=== PATIENT | female | born 1950 | race Caucasian/White ===

== ENCOUNTER 2019-08-01 12:13 | Outpatient (CLI) | payer MEDICARE ==
--- NOTE | 2019-08-01 13:51 | MRI ---
MRI RIGHT SHOULDER WITHOUT CONTRAST: Date: 08/01/19 INDICATION: Right shoulder pain on and off for 20 years; in the past 1.5 years, pain has worsened. COMPARISON: None. FINDINGS: There is a full thickness tear involving the supraspinatus at the footprint measuring approximately 2 .2 x 2.0 cm in greatest AP and mediolateral dimensions, respectively. There is partial thickness jim cular surface extension into the anterior to mid infraspinatus and involves 50% of the tendon thickne ss. No muscular atrophy is evident. There is severe AC joint osteoarthrosis with joint hypertrophy ca using mild encroachment on the subjacent supraspinatus. Biceps tendon is located. There is some mild tendinosis of the interarticular biceps tendon. Motion artifact slightly limits image detail, particu larly of the glenoid labrum. No definite full thickness labral tear is evident. No paralabral cyst is identified. Glenohumeral articular surface appears relatively well maintained. IMPRESSION: 1. Full thickness tear of the supraspinatus with partial thickness articular surface extension into the anterior to mid infraspinatus. This partial thickness tear of the infraspinatus involves approxim ately 50% of the tendon thickness. 2. Severe AC joint osteoarthrosis with mild encroachment. 3. Mild biceps tendinosis. 4. Some limitation of exam due to motion artifact. POS: OFF
--- NOTE | 2019-08-01 14:25 | MMO ---
Bilateral MAMMO Bilat Screen [facility]. CLINICAL HISTORY: Patient is 68 years old and is seen for screening. The patient has no family history of breast cancer. The patient has no personal history of cancer. VIEWS: The views performed were: bilateral craniocaudal with tomosynthesis and bilateral mediolateral oblique with tomosynthesis. MAMMOGRAM FINDINGS: There are scattered fibroglandular densities. There are benign appearing calcifications seen in both breasts. There are no suspicious masses, suspicious calcifications, or new areas of architectural distortion. IMPRESSION: THERE IS NO MAMMOGRAPHIC EVIDENCE OF MALIGNANCY. A ROUTINE FOLLOW-UP MAMMOGRAM IN 1 YEAR IS RECOMMENDED. THE RESULTS OF THIS EXAM WERE SENT TO THE PATIENT. ACR BI-RADS Category 2 - Benign finding MAMMOGRAPHY NOTE: 1. A negative mammogram report should not delay a biopsy if a dominant of clinically suspicious mass is present. 2. Approximately 10% to 15% of breast cancers are not detected by mammography. 3. Adenosis and dense breasts may obscure an underlying neoplasm. Reported by: JOSE A PINEDA MD Electonically Signed: [id number]
== END 2019-08-01 12:14 | disposition home or self-care (01) ==
LOC: BICMRI 12:13
PROVIDERS: ATTEND Family Medicine
DX: Z12.31 Encounter for screening mammogram for malignant neoplasm of breast (principal); M25.511 Pain in right shoulder; M19.011 Primary osteoarthritis, right shoulder; M75.21 Bicipital tendinitis, right shoulder; M75.101 Unspecified rotator cuff tear or rupture of right shoulder, not specified as traumatic
CPT/HCPCS: 77063; 77067

== ENCOUNTER 2019-08-24 10:40 | Outpatient (CLI) | payer MEDICARE ==
[2019-08-24 15:21] LABS: #Eosinphils 0.2 thou/uL (0.0-0.7); #Lymphocytes 1.6 thou/uL (1.20-3.40); #Monocytes 0.3 thou/uL (0.11-0.59); #Neutrophils 3.5 thou/uL (1.40-6.50); %Basophils 0.5 % (0.0-1.0); %Eosinophils 3.3 % (0.0-10.0); %Lymphocytes 29.2 % (21.0-51.0); %Monocytes 5.5 % (0.0-10.0); %Neutrophils 61.5 % (42.0-75.0); Hemoglobin 13.7 g/dL (12.0-16.0); Mean Corpuscular HGB CONC 34.9 g/dL (32.0-36.0); Mean Corpuscular Hemoglobin 32.3 pg (27.0-31.0); Mean Corpuscular Volume 92.5 fL (78.0-98.0); Mean Platelet Volume 8.9 fL (7.4-10.4); Platelet Count 161 thou/uL (130-400); RBC Distribution Width 12.8 % (11.5-14.5); Red Blood Cell (RBC) Count 4.24 mill/uL (4.20-5.40); White Blood Cell (WBC) Count 5.6 thou/uL (4.8-10.8)
[2019-08-24 15:27] LABS: INR-International Normal Ratio 1.1; Prothrombin Time 13.8 SEC (12.0-14.7)
[2019-08-24 16:00] LABS: Bilirubin Negative (Negative); Blood, Urine Negative (Negative); Clarity Clear (Clear); Glucose, Urine (Dipstick) Normal (Negative); Leukocyte 75 Leu/uL (Negative); Nitrite 1+ (Negative); Protein, Urine (Dipstick) Negative (Neg-Trace); RBC/HPF 0-3 HPF (0-3); Squamous Epithelial 0-3 HPF (0-3); Urobilinogen Normal mg/dL (Less than 2)
[2019-08-24 16:24] LABS: Bacteria/HPF 3+ HPF (None Seen)
--- NOTE | 2019-08-25 20:15 | EKG ---
Test Reason : Blood Pressure : / mmHG Vent. Rate : 074 BPM Atrial Rate : 074 BPM P-R Int : 136 ms QRS Dur : 074 ms QT Int : 400 ms P-R-T Axes : 052 020 070 degrees QTc Int : 444 ms Sinus rhythm with Fusion complexes Low voltage QRS Cannot rule out Anterior infarct , age undetermined Abnormal ECG No previous ECGs available Confirmed by ABDIRASHID MENDES, DR. Walter ([id number]) on 08/25/2019 8:15:10 PM Referred By: LAVONNE Confirmed By:DR. Saba MENDENHALL MD
== END 2019-08-24 10:41 | disposition home or self-care (01) ==
LOC: LABBT 10:40
PROVIDERS: ATTEND Orthopaedic Surgery
DX: Z01.818 Encounter for other preprocedural examination (principal); M75.101 Unspecified rotator cuff tear or rupture of right shoulder, not specified as traumatic
CPT/HCPCS: 81001; 85025; 85610; 93005; 93010

== ENCOUNTER 2019-08-25 07:19 | Day surgery (SDC) | payer MEDICARE ==
[2019-08-24 11:28] VITALS: BMI 33.7
[2019-08-25] MEDS ORDERED: Midazolam HCl 2 mg/2 ml Vial ONE (08:19)
[2019-08-25] MEDS ORDERED: Fentanyl 100 MCG/2 ML VIAL ONE (08:19)
[2019-08-25] MEDS ORDERED: HYDROcodone/Acetaminophen 10/325 mg Tablet PO PRN ×2 (08:47)
[2019-08-25] MEDS ORDERED: Promethazine HCl 25 MG/ML VIAL IM PRN (08:47)
[2019-08-25] MEDS ORDERED: Ropivacaine 0.2% 550 ML 550 ML NERVE BLCK SCH (08:47)
[2019-08-25] MEDS ORDERED: Ondansetron PF 4 MG/2 ML Vial IVP PRN (08:47)
[2019-08-25] MEDS ORDERED: Zolpidem Tartrate 5 MG TAB PO PRN (08:47)
[2019-08-25] MEDS ORDERED: Ketorolac Tromethamine 30 MG/ML VIAL IVP PRN (08:47)
[2019-08-25] MEDS ORDERED: traMADol HCl 50 MG TAB PO PRN ×2 (08:47)
[2019-08-25] MEDS ORDERED: Bupivacaine/Epinephrine 0.25% 30 ML VIAL ONE (10:16)
--- NOTE | 2019-08-26 08:44 | OP ---
DATE OF PROCEDURE: 08/25/2019 PREOPERATIVE DIAGNOSIS: Right full-thickness rotator cuff tear, supraspinatus and leading edge infraspinatus with superior labral degenerative changes and biceps tendinopathy. POSTOPERATIVE DIAGNOSIS: Right full-thickness supraspinatus and leading edge infraspinatus tear with biceps partial tearing and superior labral injury. PROCEDURES PERFORMED: 1. Right rotator cuff repair, double-row transosseous equivalent. 2. Biceps tenotomy. CONSUMER BANKER: None. ANESTHESIA: The patient received a general endotracheal intubation with interscalene block. ESTIMATED BLOOD LOSS: 30 mL. TOURNIQUET TIME: None. ANTIBIOTICS: Ancef 2 g. IMPLANTS: Two 5.5 Corkscrews, two 4.5 SwiveLocks. COMPLICATIONS: None. HISTORY OF PRESENT ILLNESS: Ms. Cruz is a 68-year-old female presenting with over two years of right shoulder pain, pain with her activities, pain 10/10. She was found to have full-thickness tear of the supraspinatus and infraspinatus. Discussed biceps tendinosis and superior labral degenerative changes. I discussed with the patient the risks and benefits of a biceps tenotomy versus tenodesis with rotator cuff repair. I discussed the risks and benefits of surgery to include pain, scar, bleeding, infection, damage to vital structures, failure of repair, continued pain despite surgical intervention, loss of life or limb. The patient understood the risks and benefits and elected to proceed. DESCRIPTION OF PROCEDURE: Time-out was performed designating the patient's right upper extremity as the operative site, based on site, consents, and markings. After time-out, posterior working portal was placed intra-articularly. I looked through the rotator interval, debrided the portion of the superior labrum, found the rotator cuff tear. The biceps was partially torn in areas, tendinopathic, instability at the root; therefore I elected for a tenotomy. I cut the biceps. I saw the tear intra-articularly. I then moved completion of my intra-articular scope showing the subscapularis intact and moved subacromially. I found the tear after placing a lateral portal. I then used a primo and debrided the bone down and placed two anchors off the articular margin and passed 8 stiches, 8 horizontal mattress sutures. I used four limbs to lateral-row transosseous-equivalent anterior and posterior. There was a little laxity in the anterior row. I was overall pleased with my repair. I had placed two other portals to help with my visualization and passage. While I was attempting to start the tenodesis of the biceps, but it was stable within the groove, I think this was a large chunk that was taken. It was catching within my repair and I could not actually release it. Therefore, I left it in place as a tenotomy. The patient will follow up with me in 2 weeks. Begin elbow, wrist, and hand motion PROM. Job ID: [id number] [facility]
== END 2019-08-25 13:42 | disposition home or self-care (01) ==
LOC: SDC 07:19
PROVIDERS: ATTEND Orthopaedic Surgery
PROC: 0LQ10ZZ Repair Right Shoulder Tendon, Open Approach (ICD-10-PCS; principal; 2019-08-25)
PROC: 3E0T3BZ Introduction of Anesthetic Agent into Peripheral Nerves and Plexi, Percutaneous Approach (ICD-10-PCS; 2019-08-25)
DX: M75.111 Incomplete rotator cuff tear or rupture of right shoulder, not specified as traumatic (principal); S46.211A Strain of muscle, fascia and tendon of other parts of biceps, right arm, initial encounter; M19.011 Primary osteoarthritis, right shoulder; G89.18 Other acute postprocedural pain; X58.XXXA Exposure to other specified factors, initial encounter
CPT/HCPCS: 23412; 64416; A4306; C1713 ×2; J0690; J2250; J2795; J3010

== ENCOUNTER 2020-05-08 15:05 | Outpatient (CLI) | payer MEDICARE ==
--- NOTE | 2020-05-08 16:17 | MRI ---
EXAM: RIGHT SHOULDER MRI WITHOUT IV CONTRAST: 05/08/20 HISTORY: Acute pain right shoulder. Painful range of motion. Prior surgery in August 2019. COMPARISON: 08/01/19. FINDINGS: Exam is limited technically because of motion and artifact. Postop rotator cuff repair changes are no xander. There is no evidence for an intact intra-articular biceps tendon. There is evidence for internal fixation anchor which is within the subacromial bursa and adjacent to the torn retracted supraspinat us tendon. Minimal increased signal involving the undersurface of the infraspinatus tendon, evidence for partial thickness undersurface tear. Subscapularis tendinopathy. There is some irregularity of the superior and superior posterior labrum evidence for some tearing or fraying. No acute osteochondral defect. IMPRESSION: Movement of one of the internal fixation anchors from the greater tuberosity into the subacromial bur sa region adjacent to the retracted supraspinatus tendon. Marked AC joint arthrosis. Fluid within th e subacromial and subdeltoid bursal regions. Partial thickness undersurface tear of the infraspinatus tendon. No evidence for an intact biceps tendon within the intra-articular region. Very poorly defin ed somewhat blunted irregular appearing superior labrum and superior posterior labrum. POS: RRE
== END 2020-05-08 15:06 | disposition home or self-care (01) ==
LOC: BICMRI 15:05
PROVIDERS: ATTEND Orthopaedic Surgery
DX: M25.511 Pain in right shoulder (principal); M19.011 Primary osteoarthritis, right shoulder; M75.101 Unspecified rotator cuff tear or rupture of right shoulder, not specified as traumatic

== ENCOUNTER 2020-07-27 12:22 | Outpatient (CLI) | payer MEDICARE ==
--- NOTE | 2020-07-27 13:38 | MRI ---
MRI lumbar spine noncontrast: HISTORY: Lumbar spine MRI without contrast COMPARISON: L4 compression fracture. Recent fall. FINDINGS: T1 marrow signal hypointensity with loss of vertebral body height, mild retropulsion and vertebral regina dy edema involving the L4 level, compatible with a subacute compression fracture. Correlation made with a lumbar spine radiograph 06/19/2020 does suggest mild progression of loss of vertebral body heig ht. Subtle T1 hypointensity with T2 and STIR hyperintensity involving the inferior left endplate of L3 may represent endplate injury versus type I Modic change. Appropriate signal intensity of the visu alized paraspinal muscles. Exophytic cyst emanating from the lower pole of the left kidney Conus medullaris terminates at the inferior aspect of L1 T12-L1:No posterior disc abnormality. No significant central canal stenosis. Patent bilateral neural foramina L1-L2:Adequate disc hydration. No posterior disc abnormality. No significant central canal stenosis. Patent bilateral neural foramina L2-L3:Adequate disc hydration. Broad-based disc bulge, ligament flavum thickening and facet hypertrop hy result in mild central canal stenosis. Patent right and left neural foramina L3-L4:Adequate disc hydration. Broad-based disc bulge, ligament flavum thickening and facet hypertrop hy result in mild to moderate central canal stenosis. Mild right and [id number] left neural foraminal narrowing. L4-L5:Adequate disc hydration. No significant loss of disc space height. No significant posterior dis c abnormality. No significant central canal stenosis. Mild bilateral foraminal narrowing due to disc material and facet hypertrophy. L5-S1:Disc desiccation with moderate loss of disc space height. Broad-based disc bulge abuts the vent ral epidural space and encroaches upon both subarticular zones. There is contact upon both traversing S1 nerve roots without significant mass effect or obscuration. Moderate bilateral neural f oraminal narrowing. IMPRESSION: Redemonstration of a subacute compression fracture at L4. There is mild progression of loss of verteb ral body height when compared to the previous exam. There appears to be edema involving both pedicles, left greater than right. Additional endplate changes along the inferior endplate of L4 may represent posttraumatic change versus type I Modic change. Transcribed Date/Time: 07/27/2020 2:10 PM
== END 2020-07-27 12:23 | disposition home or self-care (01) ==
LOC: BICMRI 12:22
PROVIDERS: ATTEND Family Medicine
DX: S32.040A Wedge compression fracture of fourth lumbar vertebra, initial encounter for closed fracture (principal); G89.4 Chronic pain syndrome
CPT/HCPCS: 72148

== ENCOUNTER 2020-07-28 15:58 | Inpatient (IN) | payer MEDICARE, OTHER ==
--- NOTE | 2020-07-28 16:41 | RAD ---
PORTABLE CHEST: 07/28/20 HISTORY: Bennie pain. Heart size and mediastinum are within normal limits. The lungs are clear of any infiltrates. No signi ficant bony findings. IMPRESSION: No active intrathoracic disease. POS: OFF
[2020-07-28 16:45] LABS: #Basophils 0.1 thou/uL (0.0-0.2); #Eosinphils 0.1 thou/uL (0.0-0.7); #Lymphocytes 1.3 thou/uL (1.20-3.40); #Monocytes 0.5 thou/uL (0.11-0.59); #Neutrophils 5.8 thou/uL (1.40-6.50); %Basophils 0.6 % (0.0-1.0); %Eosinophils 1.8 % (0.0-10.0); %Lymphocytes 16.1 % (21.0-51.0); %Monocytes 6.9 % (0.0-10.0); %Neutrophils 74.5 % (42.0-75.0); Hemoglobin 14.8 g/dL (12.0-16.0); Mean Corpuscular HGB CONC 33.4 g/dL (32.0-36.0); Mean Corpuscular Hemoglobin 31.2 pg (27.0-31.0); Mean Corpuscular Volume 93.5 fL (78.0-98.0); Mean Platelet Volume 9.8 fL (7.4-10.4); Platelet Count 237 thou/uL (130-400); RBC Distribution Width 13.1 % (11.5-14.5); Red Blood Cell (RBC) Count 4.73 mill/uL (4.20-5.40); White Blood Cell (WBC) Count 7.8 thou/uL (4.8-10.8)
[2020-07-28 17:07] LABS: ALT (SGPT) 169 U/L (8-55); AST (SGOT) 96 U/L (5-34); Albumin 3.9 g/dL (3.4-4.8); Alkaline Phosphatase 81 U/L (40-110); Anion Gap 15 mmol/L (10-20); BUN (Urea Nitrogen) 24 mg/dL (9.8-20.1); Bilirubin, Total 0.8 mg/dL (0.2-1.2); CK (CPK) 15 U/L (29-168); Calc. Creatinine Clearance 0 mL/min (70-130); Calcium 8.9 mg/dL (7.8-10.44); Carbon Dioxide 25 mmol/L (23-31); Chloride 101 mmol/L (98-107); Estimated GFR-MDRD 78; Globulin 2.8 g/dL (2.4-3.5); Glucose 135 mg/dL (80-115); Protein, Total 6.7 g/dL (6.0-8.3); Sodium 137 mmol/L (136-145)
--- NOTE | 2020-07-28 18:57 | ULT ---
RIGHT UPPER QUADRANT ULTRASOUND: 07/28/20 HISTORY: Right upper quadrant pain. FINDINGS: The liver demonstrates increased echogenicity consistent with fatty infiltration. No focal mass or in trahepatic ductal dilatation is seen. The right kidney and gallbladder are normal. The tail of the pa ncreas is not visualized. The remainder of the pancreas appears normal. The common duct measures 4 mm in diameter. No free fluid is seen in Galicia's pouch. IMPRESSION: 1. Fatty liver. 2. No evidence of cholelithiasis. POS: MZA
[2020-07-28] MEDS ORDERED: methylPREDNISolone Sod Succ/PF 125 MG/2 ML VIAL ONE (20:14)
[2020-07-28] MEDS ORDERED: Aspirin 325 MG TAB ONE (20:14)
--- NOTE | 2020-07-28 20:15 | PDOC.HHP ---
Hospitalist HPI - History of Present Illness Feels like elephant sitting on chest History of Present Illness: PCP: Dr. Coreas The patient is a 69-year-old female with past medical history significant for hypertension. She presents to the ER today for what feels like an elephant is sitting on her chest. She states that when she swallows any food or drink she feels like the swallow was stopping in her chest and causing the pain. The patient does state that the only time the pain occurs is after eating or drinking anything, nothing else seems to be exacerbating the pain. Patient also claims to have shooting abdominal pain that reaches into her chest and is what actually starts the chest pain. She states that the pain will get tighter and tighter and feel like "labor pains" and then they will begin to lessen and that is also when the chest pain also decreases. She has found no relieving factors at home for the abdominal or chest pain. She was 3 days without a bowel movement and then today in the ER she had loose stools. When she wiped she noticed that there was a significant amount of blood on the toilet paper that was a darker red in color. She states she did not note how much blood was in the toilet because she was focused on the toilet paper. She states that she has not had this in the past. Patient has hives and states she is swollen twice her size. She states that she has been having difficulty breathing and hives since Thursday which led to the urgent care visit. At urgent care she tested negative for COVID and for the flu. She was started on a Z-Arsen and oral steroids and discharged home. States that she has taken Z-Arsen in the past and has had no difficulties with it. She was using topical Benadryl at home and found no relief with itching. She states that she has had hives like this in the past when she was under significant amount of stress and they resolved on their own within 24 hours. Patient does state that her stress level is higher at this time due to her 's health. ED Course: Today in the ER the patient had lab work, chest x-ray, abdominal ultrasound, and an EKG. She was administered 324 mg of aspirin and 125 mg of methylprednisone IV. Hospitalist ROS - Review of Systems Constitutional: denies: fever, chills, sweats, weakness, malaise, other Eyes: denies: pain, vision change, conjunctivae inflammation, eyelid inflammation, redness, other ENT: denies: ear pain, ear discharge, nose pain, nose discharge, nose congestion , mouth pain, mouth swelling, throat pain, throat swelling, other Respiratory: denies: cough, dry, shortness of breath, hemoptysis, SOB with excertion, pleuritic pain, sputum, wheezing, other Cardiovascular: reports: chest pain (Pressure when eating) Gastrointestinal: reports: melena Genitourinary: denies: dysuria, frequency, incontinence, hematuria, retention, other Musculoskeletal: denies: neck pain, shoulder pain, arm pain, back pain, hand pain, leg pain, foot pain, other Skin: reports: rash (Hives over her entire body) Neurological: denies: weakness, numbness, incoordination, change in speech, confusion, seizures, other All other systems reviewed; all pertinent +/- noted in HPI/Subj - Medication Medications: Allergies: Codeine Current medications: methylPREDNISolone Sat Jul 28, 2020 16:33 NORA Maria Melanie tablet : Strength - 4 mg : ORAL Patient Dose: 4 mg Oral. tiZANidine Sat Jul 28, 2020 16:34 NORA Maria Melanie capsule : Strength - 4 mg : ORAL Patient Dose: 4 mg Oral As Needed. citalopram ThuJul 28, 2020 16:35 NORA Maria Melanie tablet : Strength - 40 mg : ORAL Patient Dose: 40 mg Oral once a day. lisinopril ThuJul 28, 2020 16:35 NORA Maria Melanie tablet : Strength - 10 mg : ORAL Patient Dose: 10 mg Oral once a day. naproxen ThuJul 28, 2020 16:36 NORA Maria Melanie tablet : Strength - 500 mg : ORAL Patient Dose: 500 mg Oral 2 times a day. Xanax ThuJul 28, 2020 16:36 NORA Maria Melanie tablet : Strength - 1 mg : ORAL Patient Dose: Unknown. Hospitalist History - Past Medical History Source: patient Cardiac: reports: HTN Psych: reports: Anxiety, Depression - Past Surgical History Past Surgical History: reports: Other (Rotator cuff) - Family History Family History: reports: no pertinent history - Social History Smoking Status: Never smoker Alcohol: reports: None Drugs: reports: none Living Situation: With Family Occupation: [employer] - Exam General Appearance: NAD, awake alert General - other findings: VS: BP 130/67, P 83, respiratory 25, temp 98.3, 95% room air Eye: PERRL, anicteric sclera ENT: normocephalic atraumatic, moist mucosa Neck: supple, no lymphadenopathy Heart: RRR, no murmur, no gallops, no rubs, normal peripheral pulses Respiratory: CTAB, no wheezes, no rales, no ronchi Gastrointestinal: soft, non-tender, non-distended, normal bowel sounds, no guarding, no rigidity Extremities: no cyanosis, no clubbing, 1+ LE edema (To left extremity) Skin - other findings: Hives over her entire body Psychiatric: normal affect, normal behavior Hospitalist Results - Labs Result Diagrams: 07/28/20 16:33 07/28/20 16:33 Lab results: WBC 7.8 thou/uL (4.8-10.8) 07/28/20 16:33 Hgb 14.8 g/dL (12.0-16.0) 07/28/20 16:33 Hct 44.3 % (36.0-47.0) 07/28/20 16:33 MCV 93.5 fL (78.0-98.0) 07/28/20 16:33 Plt Count 237 thou/uL (130-400) 07/28/20 16:33 Neutrophils % 74.5 % (42.0-75.0) 07/28/20 16:33 Sodium 137 mmol/L (136-145) 07/28/20 16:33 Potassium 4.0 mmol/L (3.5-5.1) 07/28/20 16:33 Chloride 101 mmol/L (98-107) 07/28/20 16:33 Carbon Dioxide 25 mmol/L (23-31) 07/28/20 16:33 BUN 24 mg/dL (9.8-20.1) H 07/28/20 16:33 Creatinine 0.74 mg/dL (0.6-1.1) 07/28/20 16:33 Glucose 135 mg/dL (80-115) H 07/28/20 16:33 Calcium 8.9 mg/dL (7.8-10.44) 07/28/20 16:33 Total Bilirubin 0.8 mg/dL (0.2-1.2) 07/28/20 16:33 AST 96 U/L (5-34) H 07/28/20 16:33 ALT 169 U/L (8-55) H 07/28/20 16:33 Alkaline Phosphatase 81 U/L (40-110) 07/28/20 16:33 Creatine Kinase 15 U/L (29-168) L 07/28/20 16:33 Troponin I 0.018 ng/mL (< 0.028) 07/28/20 16:33 Serum Total Protein 6.7 g/dL (6.0-8.3) 07/28/20 16:33 Albumin 3.9 g/dL (3.4-4.8) 07/28/20 16:33 Laboratory Tests 07/28/20 16:33 Troponin I 0.018 - EKG Interpretation EKG: Sinus rhythm 86 bpm no ectopic beats - Radiology Interpretation Chest x-ray Status: report reviewed by me Additional Comment: Heart size and mediastinum are within normal limits. The lungs are clear of any infiltrates. No significant bony findings. IMPRESSION: No active intrathoracic disease. US - abdomen Status: report reviewed by me Additional Comment: FINDINGS: The liver demonstrates increased echogenicity consistent with fatty infiltration. No focal mass or in trahepatic ductal dilatation is seen. The right kidney and gallbladder are normal. The tail of the pa ncreas is not visualized. The remainder of the pancreas appears normal. The common duct measures 4 mm in diameter. No free fluid is seen in Morrisons pouch. IMPRESSION: 1. Fatty liver. 2. No evidence of cholelithiasis. Hospitalist H&P A/P - Problem (1) Chest pain Code(s): R07.9 - CHEST PAIN, UNSPECIFIED Status: Acute (2) Abdominal pain Code(s): R10.9 - UNSPECIFIED ABDOMINAL PAIN Status: Acute (3) Hives Code(s): L50.9 - URTICARIA, UNSPECIFIED Status: Acute (4) Hypertension Code(s): I10 - ESSENTIAL (PRIMARY) HYPERTENSION Status: Chronic (5) Anxiety Code(s): F41.9 - ANXIETY DISORDER, UNSPECIFIED Status: Chronic (6) Depression Code(s): F32.9 - MAJOR DEPRESSIVE DISORDER, SINGLE EPISODE, UNSPECIFIED Status : Chronic - Plan Plan: Chest pain Monitor on telemetry Serial cardiac enzymes, initial troponin negative A.m. labs Stat magnesium Abdominal pain with possible GI bleed Monitor H&H every 6 hours GI consult in a.m. PPI IV twice daily FOBT BUN slightly elevated Hives IV Benadryl as needed Patient states they are getting better from earlier this week, still in a lot of discomfort Hypertension Restart home medications Monitor vital signs every 4 hour Stable at this time Anxiety and depression Restart home medications GI prophylaxis with Protonix, VTE prophylaxis with SCDshold anticoagulants due to melena CODE STATUS: Full Surrogate decision-maker: , John Cruz Patient discussed with Dr. Rambo Lynch
[2020-07-28] MEDS ORDERED: Ondansetron ODT 4 MG TAB SL PRN (22:06)
[2020-07-28] MEDS ORDERED: Ondansetron PF 4 MG/2 ML Vial IVP PRN (22:06)
[2020-07-28] MEDS ORDERED: Acetaminophen 325 MG TAB PO PRN (22:06)
[2020-07-28] MEDS ORDERED: Sodium Chloride 0.9% (PF) 10 ML VIAL FS PRN (22:15)
[2020-07-28 22:34] VITALS: BMI 32.6
[2020-07-28 23:12] LABS: Hemoglobin 14.9 g/dL (12.0-16.0)
[2020-07-28] MEDS: diphenhydrAMINE 50 MG/ML VIAL IVP PRN (23:17)
[2020-07-28 23:34] LABS: Troponin I 0.017 ng/mL (< 0.028)
[2020-07-29 02:17] LABS: #Eosinphils 0.1 thou/uL (0.0-0.7); #Lymphocytes 0.7 thou/uL (1.20-3.40); #Neutrophils 5.3 thou/uL (1.40-6.50); %Basophils 0.2 % (0.0-1.0); %Eosinophils 0.8 % (0.0-10.0); %Lymphocytes 11.7 % (21.0-51.0); %Monocytes 0.5 % (0.0-10.0); %Neutrophils 86.7 % (42.0-75.0); Hemoglobin 13.3 g/dL (12.0-16.0); Mean Corpuscular HGB CONC 33.9 g/dL (32.0-36.0); Mean Corpuscular Hemoglobin 31.7 pg (27.0-31.0); Mean Corpuscular Volume 93.7 fL (78.0-98.0); Mean Platelet Volume 9.5 fL (7.4-10.4); Platelet Count 202 thou/uL (130-400); RBC Distribution Width 12.9 % (11.5-14.5); White Blood Cell (WBC) Count 6.1 thou/uL (4.8-10.8)
[2020-07-29 02:39] LABS: Anion Gap 13 mmol/L (10-20); BUN (Urea Nitrogen) 26 mg/dL (9.8-20.1); Calc. Creatinine Clearance 102 mL/min (70-130); Calcium 8.2 mg/dL (7.8-10.44); Carbon Dioxide 23 mmol/L (23-31); Chloride 102 mmol/L (98-107); Cholesterol 92 mg/dl (< 200 Desired); Estimated GFR-MDRD 78; Glucose 276 mg/dL (80-115); HDL Cholesterol 23 mg/dL (>60 Neg Risk); LDL Cholesterol, Calculated 45 mg/dL; Potassium 4.4 mmol/L (3.5-5.1); Sodium 134 mmol/L (136-145); Triglycerides 119 mg/dL (Less than 150)
[2020-07-29 02:41] LABS: Troponin I Less than 0.010 ng/mL (< 0.028)
[2020-07-29] MEDS: diphenhydrAMINE 50 MG/ML VIAL IVP PRN (06:29)
[2020-07-29] MEDS ORDERED: diphenhydrAMINE 25 MG CAP PO PRN (08:29)
[2020-07-29] MEDS ORDERED: Dicyclomine 10 MG CAP PO PRN (08:29)
[2020-07-29] MEDS ORDERED: tiZANidine HCl 4 MG TAB PO PRN (08:30)
[2020-07-29] MEDS ORDERED: Electrolyte Replacement Protoc 1 EACH EACH FS SCH (08:34)
[2020-07-29] MEDS ORDERED: Lisinopril 10 MG TAB PO SCH (09:00)
[2020-07-29] MEDS ORDERED: Pantoprazole 40 MG VIAL IVP SCH (09:00)
[2020-07-29] MEDS ORDERED: Magnesium 2 GM/50 ML 2 GM in Premix Bag 1 BAG IVPB SCH (09:00)
[2020-07-29] MEDS ORDERED: Nitroglycerin 0.4 MG TAB (25 Tab Bottle) PO PRN (09:07)
[2020-07-29] MEDS ORDERED: Diabetic Tussin 200 MG/10 ML UDCUP PO PRN (09:08)
[2020-07-29] MEDS ORDERED: Sodium Chloride 0.65% Nasal 44 ML BOT EA NARE PRN (09:08)
[2020-07-29] MEDS ORDERED: Famotidine 20 MG TAB PO SCH (09:15)
[2020-07-29] MEDS: Vancomycin HCl 25 MG/ML Oral PO SCH ×3 (09:47→20:27)
[2020-07-29] MEDS: Fluticasone Propionate Nasal Spray 16 gm Bottle NASAL SCH (09:47)
[2020-07-29] MEDS: Citalopram 20 MG TAB PO SCH (09:48)
[2020-07-29] MEDS: Saccharomyces boulardii 250 MG CAP PO SCH (09:48)
[2020-07-29] MEDS: Loratadine 10 MG TAB PO SCH (09:48)
[2020-07-29 10:56] LABS: Iron 89 ug/dL (50-170); Iron Binding Capacity, Total 270 mcg/dL (265-497)
[2020-07-29 11:46] LABS: SARS-CoV-2 MS2 Positive; SARS-CoV-2 N Gene Negative; SARS-CoV-2 S Gene Negative; SARS-CoV-2 by NAA Not Detected (NotDetected); SARS-CoV-2 orf1ab Negative
--- NOTE | 2020-07-29 13:47 | CON ---
DATE OF CONSULTATION: 07/29/2020 REASON FOR CONSULTATION: Dysphagia, abdominal pain, hematochezia. CONSULTING PROVIDER: Ms. Melony Allen. HISTORY OF PRESENT ILLNESS: The patient is a 69-year-old female with past medical history of hypertension, anxiety, and depression, presenting with complaints of abdominal pain and hematochezia. She states that she was in her usual state of health until approximately 1 week ago when she began having increased left lower quadrant abdominal pain that she characterized as a cramping/contraction type pain, would radiate to the right lower quadrant, was intermittent to the point where it would occur daily around 5 to 10 times and last for 45 seconds each. This pain when it did occur was of increased intensity, reaching a severity of 9/10 to 10/10. However, given the short duration of her pain, she could not explain any alleviating or exacerbating factors. However, over the course of the week, she began having increased hematochezia associated with this cramping abdominal pain, that started approximately 1 to 2 days ago. This hematochezia was characterized as bright red blood per rectum with small amounts of bloody diarrhea with blood mixed in with the stool (no presence of grossly bloody bowel movements). On further evaluation of the patient, she states that she has been having irregular bowel habits for the last 5 years, characterized as watery diarrhea approximately 2 days per week where she would have 1 to 2 bowel movements daily and characterized a [place] score of 6 to 7 when she did have the diarrhea like bowel movements. Also over the last 2 to 3 days, she also describes increased dysphagia, characterized as the sensation of food getting stuck at the level of the sternal notch with both solids and liquids. This does not occur with every meal and was acute in onset, meaning one day she had zero symptoms and the next day she started having these symptoms. Associated other symptoms include systemic urticaria, history of severe acid reflux, subjective fevers and chills, and weight loss of approximately 10 pounds in 1 week due to anorexia. Currently, she denies any nausea, vomiting, melena, hematemesis, odynophagia, or constipation. Of note, with the worsening abdominal pain and in addition to the bloody bowel movements, it prompted her to seek healthcare assistance at the [facility]. During the course of evaluation thus far, she has had a Clostridium difficile stool study positive for the presence of the bacteria with toxin still pending at this time. REVIEW OF SYSTEMS: A 10-category review of systems was obtained with all responses negative except for the pertinent positives as listed in HPI. PAST MEDICAL HISTORY: As per HPI. PAST SURGICAL HISTORY: Right shoulder rotator cuff repair. FAMILY HISTORY: Denies any GI malignancies. SOCIAL HISTORY: Denies any tobacco, alcohol, or illicit drug use. OUTPATIENT MEDICATIONS: Reviewed. ALLERGIES: CODEINE. PHYSICAL EXAMINATION: VITAL SIGNS: Temperature 98.4, pulse 84, blood pressure 141/60, respiratory rate 20, and saturating 92% on room air. GENERAL: The patient was lying in bed, in no acute distress. Alert and oriented x4. Morbidly obese. HEENT: Normocephalic and atraumatic. Neck is supple. No JVD or scleral icterus noted. CARDIOVASCULAR: Regular rate and rhythm with no discernable murmurs, gallops, or rubs. RESPIRATORY: Clear to auscultation bilaterally with no discernable wheezes or rales. ABDOMEN: Normoactive bowel sounds. Soft, nondistended. Tenderness to palpation in the right upper quadrant and right lower quadrants. EXTREMITIES: No cyanosis, clubbing, or edema. LABORATORY DATA: CBC with a white blood cell count of 6.1, hemoglobin 13.3, hematocrit 39.3, platelets 202. Chemistry with a sodium of 134, potassium 4.4, chloride 102, CO2 of 23, BUN 26, creatinine 0.74, and glucose 276. AST 96, ALT 169, alkaline phosphatase 81, total bilirubin 0.8, and albumin 3.9. IMAGING DATA: Right upper quadrant ultrasound was obtained on 07/28/2020, which showed increased echogenicity consistent with fatty infiltration and fatty liver. There was no focal mass or intrahepatic ductal dilatation seen. The common bile duct measured approximately 4 mm in diameter with no evidence of cholelithiasis. ASSESSMENT AND PLAN: The patient is a 69-year-old female with past medical history of hypertension, anxiety, and depression, presenting with dysphagia, abdominal pain, and hematochezia secondary to probable acid reflux and Clostridium difficile colitis respectively. 1. Clostridium difficile colitis: The patient is presenting with increased lower abdominal pain that has been present for the last week, characterized as a cramping/contraction type pain and reaching a severity of 9/10 to 10/10. However, this pain would only last for approximately 45 seconds in duration and spontaneously resolve. This has been associated with increased watery bowel movements that have not been significantly changed from the patient's baseline, but now associated with hematochezia over the last 1 to 2 days. Further testing of her stools on admission were positive for the presence of Clostridium difficile bacterium with toxin still pending at this time. However, given her current clinical history and labs, this seems most consistent with Clostridium difficile colitis/infection, and therefore, treatment is warranted at this time. Recommendations: a. Would continue to trend her hemoglobin and hematocrit and transfuse as necessary to maintain the hemoglobin and hematocrit of 7/21. b. Continue to monitor clinically for signs of active GI bleeding. c. We will start the patient on oral vancomycin 125 mg every 6 hours as part of treatment for Clostridium difficile colitis. d. Could consider use of probiotics as an adjunct of therapy. e. Pain control per primary team. f. With the orthodoxy of probable C difficile colitis, colonoscopy is not indicated at this time due to increased risk of perforation. 2. Dysphagia: The patient is presenting with acute onset of dysphagia, occurring in the middle of this last week and only occurring once or twice since then and characterized as the sensation that food was getting stuck at the sternal notch. This would occur with both solids and liquids and is occurring with a history of severe acid reflux in the past. Given her history of severe acid reflux and her current morbid obesity/body habitus, the likelihood of acid reflux is much higher, and therefore, treatment for acid reflux is warranted. Normally, I would recommend a proton pump inhibitor administration, but given the concurrent diagnosis of Clostridium difficile colitis, proton pump inhibitors can potentially predispose to continued infection, so the use of H2 yocasta is preferred in this case. Recommendations: a. Would start the patient on famotidine 20 mg IV b.i.d. b. Would maintain strict anti-reflux precautions while in the hospital (the patient maintain in upright position throughout the day, have her maintain an upright position for 2 to 3 hours after eating and 2-3 hours before bedtime). 3. Elevated liver function tests: The patient is presenting with routine labs on admission, showing an elevation in her liver function tests, that is in primarily a hepatocellular distribution. At this time, it is unclear as to the etiology, but given the right upper quadrant ultrasound, the likelihood of nonalcoholic fatty liver disease is high, especially given the slight ALT predominance over AST. However, concurrent infection could also cause mild elevations in liver function tests and could be a confounding factor in this case. Recommendations: a. Would continue to trend her LFTs during this admission to give us more data points and ability to trend it while on treatment for her Clostridium difficile colitis. b. If continue to be elevated despite response to treatment for her C difficile, I would then recommend a full liver workup for further evaluation. However, this could also be performed as an outpatient. We will continue to follow. Please call with any questions again. Job ID: [id number]
[2020-07-29] MEDS: diphenhydrAMINE 25 MG CAP PO PRN ×2 (16:32→20:28)
[2020-07-29] MEDS: ALPRAZolam 0.5 MG TAB PO PRN (20:27)
[2020-07-29] MEDS: Famotidine 20 MG TAB PO SCH (20:28)
--- NOTE | 2020-07-29 23:14 | PDOC.HOSPP ---
- Subjective Encounter Date: 07/29/20 Encounter Time: 14:00 Subjective: Patient seen and examined for generalized weakness with diarrhea. C. difficile antigen came back positive. Symptomatically feeling slightly better. Continues to have generalized itching and hives. Chest discomfort has improved. No fever, nausea or vomiting reported. - Objective Vital Signs & Weight: Vital Signs (12 hours) Temp Pulse Resp BP Pulse Ox 07/29/20 20:20 98.2 F 83 20 181/82 H 94 L 07/29/20 19:12 97.4 F L 85 20 169/60 H 93 L 07/29/20 18:29 98.4 F 85 20 180/85 H 93 L 07/29/20 15:10 98.6 F 85 24 H 147/67 H 97 Weight Weight 196 lb 4.8 oz I&O: 07/28/20 07/29/20 07/30/20 06:59 06:59 06:59 Intake Total 720 960 Output Total 600 300 Balance 120 660 Result Diagrams: 07/30/20 03:39 07/30/20 03:39 Radiology Reviewed by me: Yes (Chest x-ray no infiltrate) EKG Reviewed by me: Yes (Sinus rhythm on telemetry) Hospitalist ROS - Review of Systems Respiratory: denies: cough, dry, shortness of breath, hemoptysis, SOB with excertion, pleuritic pain, sputum, wheezing, other Cardiovascular: reports: chest pain. denies: palpitations, orthopnea, paroxysmal noc. dyspnea, edema, light headedness, other Gastrointestinal: reports: diarrhea (3 episodes earlier). denies: nausea, vomiting, abdominal pain, constipation, melena, hematochezia, other All other systems reviewed; all pertinent +/- noted in HPI/Subj - Medication Medications: Active Medications Generic Name Dose Route Start Last Admin Trade Name Freq PRN Reason Stop Dose Admin Alprazolam 0.5 mg 07/29/20 08:30 07/29/20 20:27 Xanax PO 0.5 mg TID PRN Administration Anxiety Citalopram Hydrobromide 40 mg 07/29/20 09:00 07/29/20 09:48 Celexa PO 40 mg QAM NIECY Administration Diphenhydramine HCl 25 mg 07/29/20 15:57 07/29/20 20:28 Benadryl PO 25 mg Q4H PRN Administration Itching & Insomnia Famotidine 20 mg 07/29/20 21:00 07/29/20 20:28 Pepcid PO 20 mg BID NIECY Administration Fluticasone Propionate 0 gm 07/29/20 09:00 07/29/20 09:47 Flonase Nasal [place] NASAL 2 spr DAILY NIECY Administration Loratadine 10 mg 07/29/20 09:00 07/29/20 09:48 Claritin PO 10 mg DAILY NIECY Administration Saccharomyces Boulardii 250 mg 07/29/20 09:00 07/29/20 09:48 Florastor PO 250 mg DAILY NICEY Administration Sodium Chloride 10 ml 07/29/20 09:00 07/29/20 20:28 Flush - Normal Saline IVF 10 ml Q12HR NIECY Administration Sodium Chloride 10 ml 07/28/20 22:15 07/29/20 07:56 Normal Saline Pf FS 10 ml PRN PRN Administration RECONSTITUTION Vancomycin HCl 125 mg 07/29/20 09:00 07/29/20 20:27 First Vancomycin PO 125 mg 0300,0900,1500,2100 NIECY Administration - Exam General Appearance: ill appearing ENT: normocephalic atraumatic, no oropharyngeal lesions Neck: supple, no JVD Heart: RRR, no gallops, no rubs, normal peripheral pulses Respiratory: CTAB, no wheezes, no rales, no ronchi Gastrointestinal: soft, non-distended, normal bowel sounds, no guarding, no rigidity, tender to palpation (Mild generalized tenderness) Extremities: no cyanosis, no clubbing, no edema Skin: normal turgor Neurological: no new deficit Psychiatric: normal affect, A&O x 3 Hosp A/P (1) Generalized weakness Code(s): R53.1 - WEAKNESS Status: Acute (2) C. difficile colitis Code(s): A04.72 - ENTEROCOLITIS D/T CLOSTRIDIUM DIFFICILE, NOT SPCF RECUR Status: Acute (3) Lower GI bleeding Code(s): K92.2 - GASTROINTESTINAL HEMORRHAGE, UNSPECIFIED Status: Acute (4) Chest pain Code(s): R07.9 - CHEST PAIN, UNSPECIFIED Status: Acute (5) Allergic reaction Code(s): T78.40XA - ALLERGY, UNSPECIFIED, INITIAL ENCOUNTER Status: Acute (6) Anxiety Code(s): F41.9 - ANXIETY DISORDER, UNSPECIFIED Status: Chronic (7) Hypertension Code(s): I10 - ESSENTIAL (PRIMARY) HYPERTENSION Status: Chronic (8) Obesity (BMI 30.0-34.9) Code(s): E66.9 - OBESITY, UNSPECIFIED Status: Chronic - Plan DVT proph w/SCDs Patient will be monitored on telemetry. For C. difficile colitis patient will be started on oral vancomycin. Add probiotic will start IV PPIs for GI bleeding. Monitor H&H. GI input appreciated. Continue gentle hydration. Will hold lisinopril due to possible cause of the allergic reaction since no other etiology is identified. Continue H1 and H2 yocasta. Hold steroids for now. Echocardiogram will be obtained for chest pain which appears to be atypical and likely due to GERD. Home medications will be resumed. Recheck labs in a.m. Patient will require 2 to 3 days for stabilization. Case discussed with gastroenterology.
[2020-07-30] MEDS: Vancomycin HCl 25 MG/ML Oral PO SCH ×4 (02:27→21:05)
[2020-07-30] MEDS: diphenhydrAMINE 25 MG CAP PO PRN ×4 (02:29→21:05)
[2020-07-30 04:17] LABS: #Eosinphils 0.1 thou/uL (0.0-0.7); #Lymphocytes 1.7 thou/uL (1.20-3.40); #Monocytes 0.4 thou/uL (0.11-0.59); #Neutrophils 2.9 thou/uL (1.40-6.50); %Basophils 0.2 % (0.0-1.0); %Eosinophils 2.5 % (0.0-10.0); %Lymphocytes 33.1 % (21.0-51.0); %Neutrophils 57.2 % (42.0-75.0); Hemoglobin 12.3 g/dL (12.0-16.0); Mean Corpuscular HGB CONC 33.1 g/dL (32.0-36.0); Mean Corpuscular Volume 93.6 fL (78.0-98.0); Mean Platelet Volume 9.3 fL (7.4-10.4); Platelet Count 185 thou/uL (130-400); RBC Distribution Width 12.9 % (11.5-14.5); Red Blood Cell (RBC) Count 3.96 mill/uL (4.20-5.40)
[2020-07-30 04:21] LABS: Hemoglobin A1c 5.2 % (4.0-6.0)
[2020-07-30 04:39] LABS: ALT (SGPT) 104 U/L (8-55); AST (SGOT) 53 U/L (5-34); Albumin 3.3 g/dL (3.4-4.8); Alkaline Phosphatase 82 U/L (40-110); Anion Gap 11 mmol/L (10-20); BUN (Urea Nitrogen) 22 mg/dL (9.8-20.1); Bilirubin, Total 0.4 mg/dL (0.2-1.2); Calc. Creatinine Clearance 113 mL/min (70-130); Calcium 7.9 mg/dL (7.8-10.44); Carbon Dioxide 26 mmol/L (23-31); Chloride 105 mmol/L (98-107); Estimated GFR-MDRD 88; Globulin 2.5 g/dL (2.4-3.5); Glucose 129 mg/dL (80-115); Magnesium 2.3 mg/dL (1.6-2.6); Potassium 4.2 mmol/L (3.5-5.1); Protein, Total 5.8 g/dL (6.0-8.3); Sodium 138 mmol/L (136-145)
[2020-07-30] MEDS: Famotidine 20 MG TAB PO SCH ×2 (09:47→21:05)
[2020-07-30] MEDS: Loratadine 10 MG TAB PO SCH (09:47)
[2020-07-30] MEDS: Saccharomyces boulardii 250 MG CAP PO SCH (09:47)
[2020-07-30] MEDS: Citalopram 20 MG TAB PO SCH (09:47)
[2020-07-30] MEDS: Fluticasone Propionate Nasal Spray 16 gm Bottle NASAL SCH (11:55)
[2020-07-30] MEDS ORDERED: cloNIDine 0.1 MG TAB PO PRN (16:37)
--- NOTE | 2020-07-30 16:40 | PDOC.HOSPP ---
- Subjective Encounter Date: 07/30/20 Encounter Time: 11:00 Subjective: Patient seen and examined for C. difficile colitis/GI bleeding with chest discomfort and allergic reaction. Diarrhea has improved. She developed coughing spells last night that lasted for approximately 45 minutes. The cough was productive of thick whitish phlegm. She had a semisoft bowel movement earlier today. Denies any chest discomfort, shortness of breath, fever or chills. - Objective Vital Signs & Weight: Vital Signs (12 hours) Temp Pulse Resp BP Pulse Ox 07/30/20 16:16 98.5 F 87 16 182/82 H 92 L 07/30/20 12:00 98.0 F 79 16 149/67 H 93 L 07/30/20 09:55 98.2 F 82 16 136/68 94 L Weight Weight 207 lb 3.2 oz I&O: 07/29/20 07/30/20 07/31/20 06:59 06:59 06:59 Intake Total 720 1260 Output Total 600 300 Balance 120 960 Result Diagrams: 07/30/20 03:39 07/30/20 03:39 EKG Reviewed by me: Yes (Sinus rhythm on telemetry) Hospitalist ROS - Review of Systems Respiratory: reports: cough, sputum. denies: dry, shortness of breath, hemoptysis, SOB with excertion, pleuritic pain, wheezing, other Cardiovascular: denies: chest pain, palpitations, orthopnea, paroxysmal noc. dyspnea, edema, light headedness, other - Medication Medications: Active Medications Generic Name Dose Route Start Last Admin Trade Name Freq PRN Reason Stop Dose Admin Alprazolam 0.5 mg 07/29/20 08:30 07/29/20 20:27 Xanax PO 0.5 mg TID PRN Administration Anxiety Citalopram Hydrobromide 40 mg 07/29/20 09:00 07/30/20 09:47 Celexa PO 40 mg QAM NIECY Administration Diphenhydramine HCl 25 mg 07/29/20 15:57 07/30/20 10:10 Benadryl PO 25 mg Q4H PRN Administration Itching & Insomnia Famotidine 20 mg 07/29/20 21:00 07/30/20 09:47 Pepcid PO 20 mg BID NIECY Administration Fluticasone Propionate 0 gm 07/29/20 09:00 07/30/20 11:55 Flonase Nasal [place] NASAL 2 spr DAILY NIECY Administration Loratadine 10 mg 07/29/20 09:00 07/30/20 09:47 Claritin PO 10 mg DAILY INECY Administration Saccharomyces Boulardii 250 mg 07/29/20 09:00 07/30/20 09:47 Florastor PO 250 mg DAILY NIECY Administration Sodium Chloride 10 ml 07/29/20 09:00 07/30/20 09:48 Flush - Normal Saline IVF 10 ml Q12HR NIECY Administration Sodium Chloride 10 ml 07/28/20 22:15 07/29/20 07:56 Normal Saline Pf FS 10 ml PRN PRN Administration RECONSTITUTION Vancomycin HCl 125 mg 07/29/20 09:00 07/30/20 16:00 First Vancomycin PO 125 mg 0300,0900,1500,2100 NIECY Administration - Exam General Appearance: NAD Neck: supple, no JVD Heart: RRR, no gallops Respiratory: no wheezes, no rales, no ronchi Gastrointestinal: soft, non-tender, normal bowel sounds Extremities: no cyanosis, no clubbing Psychiatric: normal affect, A&O x 3 Hosp A/P (1) Generalized weakness Code(s): R53.1 - WEAKNESS Status: Acute (2) C. difficile colitis Code(s): A04.72 - ENTEROCOLITIS D/T CLOSTRIDIUM DIFFICILE, NOT SPCF RECUR Status: Acute (3) Lower GI bleeding Code(s): K92.2 - GASTROINTESTINAL HEMORRHAGE, UNSPECIFIED Status: Acute (4) Chest pain Code(s): R07.9 - CHEST PAIN, UNSPECIFIED Status: Acute (5) Allergic reaction Code(s): T78.40XA - ALLERGY, UNSPECIFIED, INITIAL ENCOUNTER Status: Acute (6) Paroxysmal atrial tachycardia Status: Acute (7) Anxiety Code(s): F41.9 - ANXIETY DISORDER, UNSPECIFIED Status: Chronic (8) Hypertension Code(s): I10 - ESSENTIAL (PRIMARY) HYPERTENSION Status: Chronic (9) Obesity (BMI 30.0-34.9) Code(s): E66.9 - OBESITY, UNSPECIFIED Status: Chronic (10) Abdominal pain Code(s): R10.9 - UNSPECIFIED ABDOMINAL PAIN Status: Resolved - Plan 07/30 Continue oral vancomycin for C. difficile. No new episodes of GI bleeding. Blood pressure uncontrolled. Lisinopril discontinued since no other etiology for allergic reaction was identified. Will add low-dose carvedilol due to 11 beats of PAT earlier. Will add Robitussin. Continue SCDs for DVT prophylaxis. Chest x-ray on admission was negative for infiltrate. If cough persistent then will consider 2 view x-ray in a.m. Continue prn antihistamines for allergic reaction. A.m. labs. GI input appreciated. Continue other medications as above. 07/29 Patient will be monitored on telemetry. For C. difficile colitis patient will be started on oral vancomycin. Add probiotic will start IV PPIs for GI bleeding. Monitor H&H. GI input appreciated. Will hold lisinopril due to possible cause of the allergic reaction since no other etiology is identified. Continue H1 and H2 yocasta. Hold steroids for now. Echocardiogram will be obtained for chest pain which appears to be atypical and likely due to GERD. Home medications will be resumed. Recheck labs in a.m. Patient will require 2 to 3 days for stabilization. Case discussed with gastroenterology.
[2020-07-30] MEDS: Carvedilol 3.125 MG TAB PO SCH (16:49)
[2020-07-30] MEDS: guaiFENesin ER 600 MG TAB PO SCH (21:05)
[2020-07-30] MEDS: ALPRAZolam 0.5 MG TAB PO PRN (21:05)
--- NOTE | 2020-07-30 23:29 | PRG ---
DATE OF SERVICE: 07/30/2020 REASON FOR CONSULTATION: Dysphagia, abdominal pain, hematochezia. SUBJECTIVE: While the patient was placed on PPI therapy in addition to oral vancomycin, she has had complete resolution of her dysphagia and abdominal pain symptoms. She does continue to have more liquid-type bowel movements, but since administration of the oral vancomycin as well, she has had approximately 1 to 2 semi-solid bowel movements during this admission. Otherwise, she denies any nausea, vomiting, fevers, chills, melena, further hematochezia, hematemesis, odynophagia. OBJECTIVE: VITAL SIGNS: Temperature 98.6, pulse 75, blood pressure 184/77, respiratory rate 20, saturating 91% on room air. GENERAL: The patient was lying in bed, in no acute distress. Alert and oriented x4. CARDIOVASCULAR: Regular rate and rhythm. RESPIRATORY: Clear to auscultation bilaterally. ABDOMEN: Normoactive bowel sounds. Soft, nontender, nondistended. EXTREMITIES: No cyanosis, clubbing, or edema. LABORATORY DATA: CBC with a white blood cell count of 5.0, hemoglobin 12.3, hematocrit 37.1, platelets 185. Chemistry with a sodium of 138, potassium 4.2, chloride 105, CO2 of 26, BUN 22, creatinine 0.67, glucose 129. AST 53, ALT 104, alkaline phosphatase 82, total bilirubin 0.4. IMAGING DATA: No current GI imaging is available for review. ASSESSMENT AND PLAN: The patient is a 69-year-old female with past medical history of hypertension, anxiety, depression, presenting with dysphagia, abdominal pain, hematochezia secondary to gastroesophageal reflux disease and Clostridium difficile colitis respectively. Clostridium difficile colitis: The patient initially presented with abdominal pain and hematochezia with infectious stool studies consistent with Clostridium difficile colitis. With administration of oral vancomycin therapy, she has had complete resolution of her abdominal pain and hematochezia thus far. However, she does continue to have 1 to 2 semi-solid liquid bowel movements over the last 24 hours. Recommendations: 1. Continue to trend her H and H and transfuse as necessary to maintain an H and H of 7/21. 2. Continue to monitor clinically for signs of active GI bleeding. 3. Continue oral vancomycin 125 mg every 6 hours. 4. Pain control per primary team. 5. Colonoscopy is not indicated at this time due to increased risk of perforation. Dysphagia: The patient presented with acute onset dysphagia that occurred 1 to 2 times over the last week with a history of severe acid reflux in the past. However, with the institution of famotidine during this admission, gastroesophageal reflux disease is most likely etiology at this time. Recommendations: 1. Continue the patient on famotidine 20 mg IV b.i.d. (would not use PPI in a patient with active C diff). 2. Continue strict anti-reflux precautions. Elevated LFTs: The patient is presenting with elevation of her LFTs on routine labs on admission, but is currently downtrending with treatment of her other medical comorbidities. At this time, the likelihood of nonalcoholic fatty liver disease is high given the patient's body habitus with possible increase due to concurrent infection/sepsis. Recommendations: We will continue to trend her LFTs and if they continue to be elevated, can be evaluated in the outpatient clinic. Given the resolution of her dysphagia and improvement in her abdominal pain and diarrhea, we will sign off at this time. Please call with any questions. Job ID: [id number]
[2020-07-31] MEDS: Vancomycin HCl 25 MG/ML Oral PO SCH ×4 (03:30→21:04)
[2020-07-31 04:10] LABS: #Eosinphils 0.2 thou/uL (0.0-0.7); #Lymphocytes 1.3 thou/uL (1.20-3.40); #Monocytes 0.2 thou/uL (0.11-0.59); #Neutrophils 1.7 thou/uL (1.40-6.50); %Basophils 0.3 % (0.0-1.0); %Lymphocytes 37.1 % (21.0-51.0); %Monocytes 6.7 % (0.0-10.0); %Neutrophils 50.9 % (42.0-75.0); Hemoglobin 12.4 g/dL (12.0-16.0); Mean Corpuscular HGB CONC 33.5 g/dL (32.0-36.0); Mean Corpuscular Hemoglobin 31.4 pg (27.0-31.0); Mean Corpuscular Volume 93.8 fL (78.0-98.0); Platelet Count 156 thou/uL (130-400); RBC Distribution Width 12.9 % (11.5-14.5); Red Blood Cell (RBC) Count 3.96 mill/uL (4.20-5.40); White Blood Cell (WBC) Count 3.4 thou/uL (4.8-10.8)
[2020-07-31 04:32] LABS: ALT (SGPT) 103 U/L (8-55); AST (SGOT) 68 U/L (5-34); Albumin 3.3 g/dL (3.4-4.8); Alkaline Phosphatase 89 U/L (40-110); Anion Gap 11 mmol/L (10-20); BUN (Urea Nitrogen) 18 mg/dL (9.8-20.1); Bilirubin, Total 0.4 mg/dL (0.2-1.2); Calc. Creatinine Clearance 117 mL/min (70-130); Calcium 8.1 mg/dL (7.8-10.44); Carbon Dioxide 27 mmol/L (23-31); Chloride 104 mmol/L (98-107); Estimated GFR-MDRD 86; Globulin 2.5 g/dL (2.4-3.5); Glucose 94 mg/dL (80-115); Magnesium 2.2 mg/dL (1.6-2.6); Potassium 4.2 mmol/L (3.5-5.1); Protein, Total 5.8 g/dL (6.0-8.3); Sodium 138 mmol/L (136-145)
[2020-07-31] MEDS: Citalopram 20 MG TAB PO SCH (09:14)
[2020-07-31] MEDS: Fluticasone Propionate Nasal Spray 16 gm Bottle NASAL SCH (09:15)
[2020-07-31] MEDS: diphenhydrAMINE 25 MG CAP PO PRN ×2 (09:15→21:05)
[2020-07-31] MEDS: guaiFENesin ER 600 MG TAB PO SCH ×2 (09:15→21:04)
[2020-07-31] MEDS: Carvedilol 3.125 MG TAB PO SCH ×2 (09:15→16:48)
[2020-07-31] MEDS: Famotidine 20 MG TAB PO SCH ×2 (09:15→21:05)
[2020-07-31] MEDS: Saccharomyces boulardii 250 MG CAP PO SCH (09:15)
[2020-07-31] MEDS: Loratadine 10 MG TAB PO SCH (09:15)
--- NOTE | 2020-07-31 13:27 | PDOC.HOSPP ---
- Subjective Encounter Date: 07/31/20 Encounter Time: 13:26 Subjective: Patient seen for follow-up regarding C. difficile colitis. Reports feeling better today. Cough is better. Stool is semi-formed. Denies any nausea or vomiting. - Objective Vital Signs & Weight: Vital Signs (12 hours) Temp Pulse Resp BP Pulse Ox 07/31/20 11:17 97.7 F 75 16 117/58 L 94 L 07/31/20 08:12 95 07/31/20 07:45 98.1 F 77 18 168/73 H 95 07/31/20 05:05 98.7 F 74 22 H 115/59 L 93 L Weight Weight 201 lb 11.2 oz I&O: 07/30/20 07/31/20 08/01/20 06:59 06:59 06:59 Intake Total 1260 720 Output Total 300 Balance 960 720 Result Diagrams: 07/31/20 03:35 07/31/20 03:35 Additional Labs: I reviewed patient's labs and MAR EKG Reviewed by me: Yes (Telemetry: NSR) Hospitalist ROS - Review of Systems Constitutional: reports: weakness Gastrointestinal: denies: nausea, vomiting, abdominal pain, diarrhea, constipation, melena, hematochezia Genitourinary: denies: dysuria, frequency, incontinence, hematuria, retention - Medication Medications: Active Medications Generic Name Dose Route Start Last Admin Trade Name Freq PRN Reason Stop Dose Admin Alprazolam 0.5 mg 07/29/20 08:30 07/30/20 21:05 Xanax PO 0.5 mg TID PRN Administration Anxiety Carvedilol 3.125 mg 07/30/20 17:00 07/31/20 09:15 Coreg PO 3.125 mg BID-WM NIECY Administration Citalopram Hydrobromide 40 mg 07/29/20 09:00 07/31/20 09:14 Celexa PO 40 mg QAM NIECY Administration Clonidine 0.1 mg 07/30/20 16:37 07/30/20 21:05 Catapres PO 0.1 mg Q4H PRN Administration SBP Greater Than 180 Diphenhydramine HCl 25 mg 07/29/20 15:57 07/31/20 09:15 Benadryl PO 25 mg Q4H PRN Administration Itching & Insomnia Famotidine 20 mg 07/29/20 21:00 07/31/20 09:15 Pepcid PO 20 mg BID NIECY Administration Fluticasone Propionate 0 gm 07/29/20 09:00 07/31/20 09:15 Flonase Nasal Schriever NASAL 2 spr DAILY NIECY Administration Guaifenesin 600 mg 07/30/20 21:00 07/31/20 09:15 Mucinex PO 600 mg Q12HR NIECY Administration Loratadine 10 mg 07/29/20 09:00 07/31/20 09:15 Claritin PO 10 mg DAILY NIECY Administration Saccharomyces Boulardii 250 mg 07/29/20 09:00 07/31/20 09:15 Florastor PO 250 mg DAILY NIECY Administration Sodium Chloride 10 ml 07/29/20 09:00 07/31/20 09:23 Flush - Normal Saline IVF 10 ml Q12HR NIECY Administration Sodium Chloride 10 ml 07/28/20 22:15 07/29/20 07:56 Normal Saline Pf FS 10 ml PRN PRN Administration RECONSTITUTION Vancomycin HCl 125 mg 07/29/20 09:00 07/31/20 09:14 First Vancomycin PO 125 mg 0300,0900,1500,2100 NIECY Administration - Exam General - other findings: Obese Eye: anicteric sclera ENT: normocephalic atraumatic Neck: supple Heart: RRR Respiratory: CTAB, no rales Gastrointestinal: soft, non-tender, normal bowel sounds Extremities: no cyanosis Skin: no rashes Musculoskeletal: normal tone Psychiatric: normal affect, normal behavior Hosp A/P - Plan (1) C. difficile colitis Code(s): A04.72 - ENTEROCOLITIS D/T CLOSTRIDIUM DIFFICILE, NOT SPCF RECUR Status: Acute (2) Generalized weakness Code(s): R53.1 - WEAKNESS Status: Acute (3) Lower GI bleeding Code(s): K92.2 - GASTROINTESTINAL HEMORRHAGE, UNSPECIFIED Status: Acute (4) Anxiety Code(s): F41.9 - ANXIETY DISORDER, UNSPECIFIED Status: Chronic (5) Hypertension Code(s): I10 - ESSENTIAL (PRIMARY) HYPERTENSION Status: Chronic (6) Obesity (BMI 30.0-34.9) Code(s): E66.9 - OBESITY, UNSPECIFIED Status: Chronic (7) Allergic reaction Code(s): T78.40XA - ALLERGY, UNSPECIFIED, INITIAL ENCOUNTER Status: Resolved - Plan July 31, 2020 Patient is clinically improving. Continue enteral vancomycin. No further arrhythmias on campus monitor. Cough has improved. Continue H2 yocasta, avoid PPI for GERD. Ambulate patient. 07/30 Continue oral vancomycin for C. difficile. No new episodes of GI bleeding. Blood pressure uncontrolled. Lisinopril discontinued since no other etiology for allergic reaction was identified. Will add low-dose carvedilol due to 11 beats of PAT earlier. Will add Robitussin. Continue SCDs for DVT prophylaxis. Chest x-ray on admission was negative for infiltrate. If cough persistent then will consider 2 view x-ray in a.m. Continue prn antihistamines for allergic reaction. A.m. labs. GI input appreciated. Continue other medications as above. 07/29 Patient will be monitored on telemetry. For C. difficile colitis patient will be started on oral vancomycin. Add probiotic will start IV PPIs for GI bleeding. Monitor H&H. GI input appreciated. Will hold lisinopril due to possible cause of the allergic reaction since no other etiology is identified. Continue H1 and H2 yocasta. Hold steroids for now. Echocardiogram will be obtained for chest pain which appears to be atypical and likely due to GERD. Home medications will be resumed. Recheck labs in a.m. Patient will require 2 to 3 days for stabilization. Case discussed with gastroenterology.
--- NOTE | 2020-07-31 14:35 | EKG ---
Test Reason : Blood Pressure : / mmHG Vent. Rate : 086 BPM Atrial Rate : 086 BPM P-R Int : 122 ms QRS Dur : 076 ms QT Int : 386 ms P-R-T Axes : 063 -31 060 degrees QTc Int : 461 ms Normal sinus rhythm Left axis deviation Inferior infarct , age undetermined Abnormal ECG Confirmed by KELLI CHEN DO ([id number]), scientific editor AMADOU KOROMA ([id number] on 07/31/2020 2:34:22 PM Referred By: Confirmed By:KELLI CHEN DO
[2020-08-01] MEDS: Vancomycin HCl 25 MG/ML Oral PO SCH ×2 (03:07→09:46)
[2020-08-01] MEDS: diphenhydrAMINE 25 MG CAP PO PRN ×2 (03:17→10:16)
[2020-08-01] MEDS: Carvedilol 3.125 MG TAB PO SCH (08:51)
[2020-08-01] MEDS: guaiFENesin ER 600 MG TAB PO SCH (09:44)
[2020-08-01] MEDS: Citalopram 20 MG TAB PO SCH (09:45)
[2020-08-01] MEDS: Famotidine 20 MG TAB PO SCH (09:45)
[2020-08-01] MEDS: Saccharomyces boulardii 250 MG CAP PO SCH (09:45)
[2020-08-01] MEDS: Loratadine 10 MG TAB PO SCH (09:45)
[2020-08-01] MEDS: Fluticasone Propionate Nasal Spray 16 gm Bottle NASAL SCH (09:46)
[2020-08-01] MEDS: ALPRAZolam 0.5 MG TAB PO PRN (10:16)
[2020-08-01 16:58] VITALS: BP 149/77; TEMP 97.3
--- NOTE | 2020-08-02 06:03 | PQF ---
Dear : Jose Desai Date: 08/02/20 Please exercise your independent, professional judgment in responding to the clarification form. Clinical indicators are provided on the bottom of this form for your review Can you please further clarify if Sepsis is ruled in or ruled out? Sepsis [ ] Ruled in diagnosis [ ] Continue to treat [ ] Resolved [ x ] Ruled out diagnosis [ ] Improving [ ] Cannot rule out diagnosis [ ] Other diagnosis [ ] Unable to determine In addition, please specify: Present on Admission (POA): [ ] Yes [ ] No [ ] Unable to determine Physician Signature: Date/Time: For continuity of documentation, please document condition throughout progress notes and discharge summary. Thank You. To be completed by CDI/Coding staff for physician review: Present Clinical Indicators - Signs / Symptoms / Labs Results and Location in Medical Record [ x ] VS: BP 128/38, Pulse 82, RR 23, Temp 98.3 ED Provider pg.2 [ x ] WBC: 7.8, 6.1,5.0,3.4L Laboratory [ x ] She had a Clostridium difficile stool stdy positive for the presence of the bacteria with toxin Consult pg.1 Dr. Li [ x ] Patient body habitus with possible increase due to concurrent infection/ sepsis PN 07/30 pg.2 Present Risk Factors Results and Location in Medical Record [ x ] Clostridium difficile colitis Consult pg.3 Dr. Li [ x ] 69 years old H and P pg.1 [ x ] GERD Consult pg.3 Dr. Li [ x ] Morbid Obesity Consult 07/29 Present Treatments Results and Location in Medical Record [ x ] GI Consult Dr. iL [ x ] Stool exam Microbiology 07/29 [ x ] IV Fluids MAR [ x ] Vancomycin 125mg PO MAR CDS/Winding Operator Signature: AbebaPaul barillasjazzy Perry Phone #: ext [phone] Date: 08/02/20 This is a permanent part of the Medical Record [facility]
--- NOTE | 2020-08-03 09:55 | DIS ---
DATE OF ADMISSION: 07/29/2020 DATE OF DISCHARGE: 08/01/2020 PRIMARY CARE PROVIDER: Dr. Ronni Coreas. DISCHARGE DIAGNOSES: 1. Clostridium difficile colitis. 2. Allergic reaction. 3. Fatty liver. 4. Hyponatremia. 5. Lower gastrointestinal bleed. CONDITION OF PATIENT ON THE DAY OF DISCHARGE: Stable. I assessed Ms. Cruz on the day of discharge. She denies any chest pain or shortness of breath. Vital signs are stable. S1 and S2 are heard, regular. Lungs are clear to auscultation bilaterally. CONSULTATIONS DURING THIS HOSPITALIZATION: Gastroenterology, Dr. Li. DISCHARGE MEDICATIONS: Lisinopril has been discontinued. Naproxen has also been discontinued. 1. She has been started on Coreg 3.125 mg 2 times a day. 2. Pepcid 20 mg 2 times a day. 3. Florastor 250 mg daily for 1 week and vancomycin 125 mg 4 times a day for 1 week. Otherwise, no change was made to her pre-admission home medications, which include Celexa 40 mg in the morning, Flonase nasal spray two sprays to each naris daily, loratadine 10 mg daily, Xanax p.r.n., and tizanidine p.r.n. HOSPITAL COURSE: Ms. Cruz is a pleasant 69-year-old lady, who was admitted to [facility] on July 28, 2020, for allergic reaction, most likely due to lisinopril use as well as diarrhea and lower GI bleed. Stool studies were positive for Clostridium difficile antigen. Toxin was not detected by PCR. However, it was felt that her presentation was secondary to Clostridium difficile colitis. She was started on enteral vancomycin, and improved. She was seen by Gastroenterology Service, who recommended continuing with vancomycin and H2 yocasta instead of PPI. She does have a history of severe acid reflux and with her current morbid obesity/body habitus, the likelihood of acid reflux is much higher, according to Gastroenterology Service. She had a 2D echocardiogram, which showed left ventricular ejection fraction of 60% to 65%, E/A flow reversal suggestive of diastolic dysfunction, normal RV size and function, moderately dilated left atrium, mildly enlarged right atrium, trace mitral regurgitation, structurally normal aortic valve and mild tricuspid regurgitation. She had abnormal LFTs at the time of admission. Abdominal ultrasound showed fatty liver. Gastroenterology Service can follow up with her as outpatient, if needed. Many thanks for allowing me to participate in your patient's care. Please feel free to contact me with any questions or concerns. ACTIVITY: No restrictions. DIET: Heart healthy. FOLLOWUP: Post acute care followup: With primary care provider in 3 days and with Gastroenterology Service in 2 weeks, if needed. She has been advised to check her blood pressure and heart rate 3 times a day and show the readings to her primary care provider so that her antihypertensives can be titrated. DISCHARGE DESTINATION: Home. TIME SPENT: Total amount of time spent coordinating this discharge: Thirty-two minutes. Job ID: [id number]
== END 2020-08-01 16:45 | disposition home or self-care (01) | DRG 372 ==
LOC: ERS 15:58 → 2SW 20:51 → OBSVTOIN 07-29 09:06 → 2NO 07-29 18:11
PROVIDERS: ADMIT Internal Medicine; ATTEND Internal Medicine
DX: A04.72 Enterocolitis due to Clostridium difficile, not specified as recurrent (principal); K92.1 Melena; Z20.828 Contact with and (suspected) exposure to other viral communicable diseases; K21.9 Gastro-esophageal reflux disease without esophagitis; F41.9 Anxiety disorder, unspecified; I10 Essential (primary) hypertension; T46.4X5A Adverse effect of angiotensin-converting-enzyme inhibitors, initial encounter; F32.9 Major depressive disorder, single episode, unspecified; L50.9 Urticaria, unspecified; K76.0 Fatty (change of) liver, not elsewhere classified; R13.10 Dysphagia, unspecified; E66.01 Morbid (severe) obesity due to excess calories; I48.0 Paroxysmal atrial fibrillation; Z68.33 Body mass index [BMI] 33.0-33.9, adult; Z88.5 Allergy status to narcotic agent; Z79.899 Other long term (current) drug therapy
CPT/HCPCS: 36415; 71045; 72148; 76705; 80048; 80053; 80061; 82274; 82550; 82728; 83036; 83540; 83550; 83735; 84484; 85025; 87324; 87449; 87493; 87635; 93005; 93306; 94760; C9113; J1200; J2930; J3475; Q0163; U0003

== ENCOUNTER 2021-07-08 13:42 | Outpatient (CLI) | payer MEDICARE | END 2021-07-08 13:43 | disposition home or self-care (01) | LOC: BICMAMMO 13:42 | PROVIDERS: ATTEND Family Medicine | DX: Z12.31 Encounter for screening mammogram for malignant neoplasm of breast (principal) | CPT/HCPCS: 77063; 77067 ==

== ENCOUNTER 2021-10-22 08:56 | Outpatient (CLI) | payer MEDICARE, OTHER ==
[2021-10-22 09:47] LABS: Estimated GFR-MDRD - POC Greater than 90
[2021-10-22] MEDS ORDERED: Magnevist 469MG/ML 20 ML VIAL ONE (10:26)
== END 2021-10-22 08:57 | disposition home or self-care (01) ==
LOC: BICMRI 08:56
PROVIDERS: ATTEND Physician Assistant Medical
DX: K76.0 Fatty (change of) liver, not elsewhere classified (principal); R16.2 Hepatomegaly with splenomegaly, not elsewhere classified; K74.00 Hepatic fibrosis, unspecified
CPT/HCPCS: 74183; 82565; A9579

== ENCOUNTER 2021-10-30 10:50 | Outpatient (CLI) | payer MEDICARE, OTHER ==
[2021-10-30 18:51] LABS: SARS-CoV-2 PCR by NAA Not Detected (NotDetected)
== END 2021-10-30 10:51 | disposition home or self-care (01) ==
LOC: LABBT 10:50
PROVIDERS: ATTEND Physician Assistant Medical
DX: Z01.812 Encounter for preprocedural laboratory examination (principal); Z20.822 Contact with and (suspected) exposure to COVID-19
CPT/HCPCS: U0003; U0005

== ENCOUNTER 2021-11-04 07:24 | Day surgery (SDC) | payer MEDICARE ==
[2021-11-01 10:22] VITALS: BMI 32.8
[~2021-11-04 07:24] MED LIST: FLU VACC QS2021-22(65YR UP)/PF 240 MCG/0.7 ML SYRINGE IM ONE
[2021-11-04 07:43] LABS: #Eosinphils 0.2 thou/uL (0.0-0.7); #Lymphocytes 1.6 thou/uL (1.20-3.40); #Monocytes 0.4 thou/uL (0.11-0.59); #Neutrophils 3.8 thou/uL (1.40-6.50); %Basophils 0.4 % (0.0-1.0); %Eosinophils 3.6 % (0.0-10.0); %Lymphocytes 26.6 % (21.0-51.0); %Monocytes 6.4 % (0.0-10.0); Mean Corpuscular HGB CONC 34.1 g/dL (32.0-36.0); Mean Corpuscular Hemoglobin 31.8 pg (27.0-31.0); Mean Corpuscular Volume 93.4 fL (78.0-98.0); Mean Platelet Volume 8.3 fL (7.4-10.4); Platelet Count 150 thou/uL (130-400); Red Blood Cell (RBC) Count 4.41 mill/uL (4.20-5.40); White Blood Cell (WBC) Count 6.1 thou/uL (4.8-10.8)
[2021-11-04 07:53] LABS: PTT 30.4 sec (22.9-36.1); Prothrombin Time 13.6 sec (12.0-14.7)
[2021-11-04 08:19] VITALS: TEMP 97.7
[2021-11-04] MEDS ORDERED: Sodium Bicarbonate 2.5 MEQ/5 ML VIAL ONE (09:00)
[2021-11-04] MEDS ORDERED: Lidocaine 1% PF 5 ML VIAL ONE (09:00)
[2021-11-04] MEDS ORDERED: Fentanyl 100 MCG/2 ML VIAL ONE (09:00)
[2021-11-04] MEDS ORDERED: Midazolam HCl 2 mg/2 ml Vial ONE (09:00)
[2021-11-04 12:33] VITALS: BP 124/68
== END 2021-11-04 12:32 | disposition home or self-care (01) ==
LOC: ULT 07:24
PROVIDERS: ATTEND Physician Assistant Medical
PROC: 0FB23ZX Excision of Left Lobe Liver, Percutaneous Approach, Diagnostic (ICD-10-PCS; principal; 2021-11-04)
DX: K75.81 Nonalcoholic steatohepatitis (NASH) (principal); K74.02 Hepatic fibrosis, advanced fibrosis; I10 Essential (primary) hypertension; K21.9 Gastro-esophageal reflux disease without esophagitis; E66.9 Obesity, unspecified; Z68.32 Body mass index [BMI] 32.0-32.9, adult; Z23 Encounter for immunization; Z79.899 Other long term (current) drug therapy; Z88.5 Allergy status to narcotic agent; Z88.8 Allergy status to other drugs, medicaments and biological substances
CPT/HCPCS: 47000; 76942; 85025; 85610; 85730; 90662; G0008; 88307; 88313; 88325; 90471; J2250; J3010

== ENCOUNTER 2022-06-11 09:20 | Outpatient (CLI) | payer MEDICARE | END 2022-06-11 09:21 | disposition home or self-care (01) | LOC: BICULT 09:20 | PROVIDERS: ATTEND Physician Assistant Medical | DX: K76.0 Fatty (change of) liver, not elsewhere classified (principal); R16.2 Hepatomegaly with splenomegaly, not elsewhere classified | CPT/HCPCS: 76705 ==

== ENCOUNTER 2023-07-06 08:12 | Outpatient (CLI) | payer MEDICARE | END 2023-07-06 08:13 | disposition home or self-care (01) | LOC: BICULT 08:12 | PROVIDERS: ATTEND Internal Medicine Gastroenterology | DX: K75.81 Nonalcoholic steatohepatitis (NASH) (principal); R16.0 Hepatomegaly, not elsewhere classified; R16.1 Splenomegaly, not elsewhere classified | CPT/HCPCS: 76705 ==

== ENCOUNTER 2023-12-15 13:05 | Outpatient (CLI) | payer OTHER | END 2023-12-15 13:06 | disposition home or self-care (01) | LOC: BICMRI 13:05 | PROVIDERS: ATTEND Family Medicine | DX: M25.512 Pain in left shoulder (principal); M19.012 Primary osteoarthritis, left shoulder; M75.122 Complete rotator cuff tear or rupture of left shoulder, not specified as traumatic; S46.212A Strain of muscle, fascia and tendon of other parts of biceps, left arm, initial encounter ==

== ENCOUNTER 2024-09-09 09:02 | Outpatient (CLI) | payer OTHER ==
[2024-09-09] MEDS ORDERED: Iopamidol 370 76% 100 ML VIAL ONE (11:32)
== END 2024-09-09 09:03 | disposition home or self-care (01) ==
LOC: CT 09:02
PROVIDERS: ATTEND Nurse Practitioner Family
DX: R65.10 Systemic inflammatory response syndrome (SIRS) of non-infectious origin without acute organ dysfunction (principal)
CPT/HCPCS: 36415; 70470; 82565; Q9967